=== PATIENT | male | born 1955 | race Caucasian/White ===

== ENCOUNTER 2022-12-02 15:14 | Emergency (ER) | payer MEDICARE, OTHER ==
[~2022-12-02] VITALS: Ht 182.9 cm; Wt 62.0 kg
[2022-12-02] MEDS ORDERED: TETanus/Pertussis (Acell)/Diphther VAC/PF (Tdap-Adult) 0.5ml syringe IMVAC ONE (15:35)
[2022-12-02] MEDS ORDERED: bacitracin 15gm ointment TP ONE (15:35)
[2022-12-02] MEDS ORDERED: LIDOcaine 1% 30ml preserv. free vial IJ ONE (15:45)
[2022-12-02] MEDS ORDERED: LIDOcaine 1% (10mg/ml)w/preservative inj. 20ml MDV SQ ONE (15:55)
[2022-12-02] MEDS ORDERED: CEPH-585 PO (16:21)
[2022-12-02 17:23] VITALS: BP 140/84; PULSE 78; RESP 16; TEMP 98.2; O2SAT 97
[2022-12-02] MEDS ORDERED: HYDR-3973 PO (17:46)
== END 2022-12-02 17:26 | disposition home or self-care (01) ==
LOC: ER 15:14
DX: S61.213A Laceration without foreign body of left middle finger without damage to nail, initial encounter (principal); X58.XXXA Exposure to other specified factors, initial encounter; Y93.89 Activity, other specified; Y92.89 Other specified places as the place of occurrence of the external cause; Y99.8 Other external cause status
CPT/HCPCS: 12032; 73140; 90471; 90715; 99283; J3490; 12002; A6449